=== PATIENT | female | born 1965 | race Caucasian/White ===

== ENCOUNTER 2020-10-13 14:50 | Outpatient (CLI) | payer BC | END 2020-10-13 14:51 | disposition home or self-care (01) | LOC: CSHMRI 14:50 | PROVIDERS: ATTEND Orthopaedic Surgery | DX: G56.03 Carpal tunnel syndrome, bilateral upper limbs (principal); M25.511 Pain in right shoulder; S43.431A Superior glenoid labrum lesion of right shoulder, initial encounter; M19.011 Primary osteoarthritis, right shoulder ==

== ENCOUNTER 2023-08-02 11:44 | Outpatient (CLI) | payer BC | END 2023-08-02 11:45 | disposition home or self-care (01) | LOC: CSHMAMMO 11:44 | PROVIDERS: ATTEND Family Medicine | DX: Z12.31 Encounter for screening mammogram for malignant neoplasm of breast (principal); Z80.3 Family history of malignant neoplasm of breast | CPT/HCPCS: 77063; 77067 ==